=== PATIENT | male | born 1965 | race African-American/Black ===

== ENCOUNTER 2024-01-06 13:34 | Emergency (ER) | payer OTHER ==
[2024-01-06] MEDS ORDERED: Nitroglycerin 2% Ointment 1 INCH/1 GM Packet ONE (13:57)
[2024-01-06 14:24] LABS: #Eosinphils 0.2 10x3/uL (0.0-0.5); #Monocytes 0.5 10x3/uL (0.0-1.1); #Neutrophils 2.8 10x3/uL (1.5-8.4); %Basophils 0.4 % (0.0-2.0); %Eosinophils 3.3 % (0.0-6.0); %Lymphocytes 21.2 % (18.0-47.0); %Monocytes 11.4 % (0.0-10.0); %Neutrophils 63.3 % (40.0-75.0); Hematocrit 34.7 % (38.8-50.0); Hemoglobin 10.4 g/dL (13.5-17.5); Mean Corpuscular Hemoglobin 23.5 pg (27.0-33.0); Mean Corpuscular Volume 78.3 fl (81.2-95.1); Mean Platelet Volume 10.6 fl (7.4-10.4); Platelet Count 235 10x3/uL (150-450); RBC Distribution Width 16.9 % (11.5-14.5); Red Blood Cell (RBC) Count 4.43 10x6/uL (4.32-5.72); White Blood Cell (WBC) Count 4.5 10x3/uL (3.5-10.5)
[2024-01-06] MEDS ORDERED: Ketorolac Tromethamine 30 MG (1 mL) VIAL ONE (14:44)
[2024-01-06 14:54] LABS: Troponin I Less than 0.010 ng/mL (< 0.028)
[2024-01-06 15:00] LABS: ALT (SGPT) 24 U/L (8-55); AST (SGOT) 19 U/L (5-34); Albumin 4.2 g/dL (3.5-5.0); Alkaline Phosphatase 88 U/L (40-110); Anion Gap 16 mmol/L (10-20); BUN (Urea Nitrogen) 24 mg/dL (8.4-25.7); Bilirubin, Total 0.6 mg/dL (0.2-1.2); Calc. Creatinine Clearance 0 mL/min (70-130); Calcium 8.7 mg/dL (7.8-10.44); Carbon Dioxide 24 mmol/L (22-29); Chloride 105 mmol/L (98-107); Estimated GFR 44; Globulin 3.1 g/dL (2.4-3.5); Glucose 205 mg/dL (70-105); Lipase 70 U/L (8-78); Potassium 5.3 mmol/L (3.5-5.1); Protein, Total 7.3 g/dL (6.0-8.3); Sodium 140 mmol/L (136-145)
[2024-01-06 15:56] LABS: Troponin I Less than 0.010 ng/mL (< 0.028)
[2024-01-06] MEDS ORDERED: HYDROcodone/Acetaminophen 5/325 mg Tablet ONE (16:22)
== END 2024-01-06 18:38 ==
LOC: CSHERS 13:34
DX: R07.2 Precordial pain (principal); I10 Essential (primary) hypertension; E11.9 Type 2 diabetes mellitus without complications
CPT/HCPCS: 36415; 71045; 80053; 83690; 84484; 85025; 93005; 96374; J1885

== ENCOUNTER 2024-07-10 12:14 | Inpatient (IN) | payer OTHER ==
[~2024-07-10 12:14] MED LIST: Iopamidol 370 76% 100 ML VIAL ONE
[2024-07-10 13:12] LABS: #Basophils 0.03 10x3/uL (0.0-0.2); #Eosinphils 0.22 10x3/uL (0.0-0.5); #Monocytes 0.54 10x3/uL (0.0-1.1); #Neutrophils 4.28 10x3/uL (1.5-8.4); %Basophils 0.5 % (0.0-2.0); %Eosinophils 3.5 % (0.0-6.0); %Lymphocytes 19.1 % (18.0-47.0); %Monocytes 8.6 % (0.0-10.0); Hematocrit 45.9 % (38.8-50.0); Hemoglobin 14.9 g/dL (13.5-17.5); Mean Corpuscular HGB CONC 32.5 g/dL (32.0-36.0); Mean Corpuscular Hemoglobin 27.2 pg (27.0-33.0); Mean Corpuscular Volume 83.9 fL (81.2-95.1); Mean Platelet Volume 9.7 fL (7.4-10.4); Platelet Count 241 10x3/uL (150-450); RBC Distribution Width 14.1 % (11.5-14.5); Red Blood Cell (RBC) Count 5.47 10x6/uL (4.32-5.72); White Blood Cell (WBC) Count 6.3 10x3/uL (3.5-10.5)
[2024-07-10 13:27] LABS: PTT 25.2 sec (22.0-33.0); Prothrombin Time 11.2 sec (9.5-12.1)
[2024-07-10 13:32] LABS: ALT (SGPT) 63 U/L (8-55); AST (SGOT) 33 U/L (5-34); Albumin 4.7 g/dL (3.5-5.0); Alkaline Phosphatase 135 U/L (40-110); Anion Gap 14 mmol/L (10-20); BUN (Urea Nitrogen) 19 mg/dL (8.4-25.7); Bilirubin, Total 0.8 mg/dL (0.2-1.2); Calc. Creatinine Clearance 0 mL/min (70-130); Calcium 10.1 mg/dL (7.8-10.44); Carbon Dioxide 27 mmol/L (22-29); Chloride 98 mmol/L (98-107); Estimated GFR 61; Globulin 3.9 g/dL (2.4-3.5); Glucose 162 mg/dL (70-105); Lipase 42 U/L (8-78); Magnesium 1.5 mg/dL (1.6-2.6); Potassium 4.3 mmol/L (3.5-5.1); Protein, Total 8.6 g/dL (6.0-8.3); Sodium 135 mmol/L (136-145)
[2024-07-10 13:35] LABS: Troponin I 0.083 ng/mL (< 0.028)
[2024-07-10] MEDS ORDERED: Magnesium 2 GM/50 ML BAG (IN WATER) ONE (13:42)
[2024-07-10 17:19] LABS: Troponin I 0.055 ng/mL (< 0.028)
[2024-07-10] MEDS ORDERED: Acetaminophen 325 MG TAB PO PRN (19:17)
[2024-07-10] MEDS ORDERED: Ondansetron PF 4 MG/2 ML Vial IVP PRN (19:17)
[2024-07-10] MEDS ORDERED: Ondansetron ODT 4 MG TAB PO PRN (19:17)
[2024-07-10] MEDS ORDERED: Acetaminophen 650 MG Suppository PR PRN (19:17)
[2024-07-10] MEDS ORDERED: Morphine 4 MG/ML VIAL SLOW IVP PRN (19:30)
[2024-07-10 20:15] LABS: Troponin I 0.053 ng/mL (< 0.028)
[2024-07-10] MEDS ORDERED: Heparin 5,000 UNITS/ML VIAL SC SCH (21:00)
[2024-07-10 22:19] VITALS: BMI 23.1
[2024-07-10] MEDS: Famotidine 20 MG TAB PO SCH (22:56)
[2024-07-10] MEDS: Carvedilol 6.25 MG TAB PO SCH (22:57)
[2024-07-10] MEDS: Morphine 2 MG/ML VIAL SLOW IVP PRN (23:28)
[2024-07-10 23:48] LABS: Troponin I 0.048 ng/mL (< 0.028)
[2024-07-11 05:10] LABS: #Basophils 0.01 10x3/uL (0.0-0.2); #Eosinphils 0.22 10x3/uL (0.0-0.5); #Monocytes 0.44 10x3/uL (0.0-1.1); %Basophils 0.3 % (0.0-2.0); %Eosinophils 5.7 % (0.0-6.0); %Lymphocytes 32.8 % (18.0-47.0); %Monocytes 11.5 % (0.0-10.0); %Neutrophils 49.4 % (40.0-75.0); Hematocrit 43.2 % (38.8-50.0); Mean Corpuscular HGB CONC 32.4 g/dL (32.0-36.0); Mean Corpuscular Hemoglobin 27.3 pg (27.0-33.0); Mean Corpuscular Volume 84.2 fL (81.2-95.1); Mean Platelet Volume 9.4 fL (7.4-10.4); Platelet Count 210 10x3/uL (150-450); RBC Distribution Width 14.4 % (11.5-14.5); Red Blood Cell (RBC) Count 5.13 10x6/uL (4.32-5.72); White Blood Cell (WBC) Count 3.8 10x3/uL (3.5-10.5)
[2024-07-11 05:25] LABS: Anion Gap 13 mmol/L (10-20); BUN (Urea Nitrogen) 24 mg/dL (8.4-25.7); Calc. Creatinine Clearance 48 mL/min (70-130); Calcium 9.4 mg/dL (7.8-10.44); Carbon Dioxide 26 mmol/L (22-29); Cardiac Risk 4.6 (Less than 4.5); Chloride 100 mmol/L (98-107); Cholesterol 137 mg/dl (< 200 Desired); Estimated GFR 56; Glucose 312 mg/dL (70-105); HDL Cholesterol 30 mg/dL (>60 Neg Risk); LDL Cholesterol, Calculated 67 mg/dL; Magnesium 1.8 mg/dL (1.6-2.6); Phosphorus 2.3 mg/dL (2.3-4.7); Potassium 4.4 mmol/L (3.5-5.1); Sodium 135 mmol/L (136-145); Triglycerides 198 mg/dL (Less than 150)
[2024-07-11] MEDS ORDERED: Glucagon 1 MG/ML KIT IM PRN (08:55)
[2024-07-11] MEDS ORDERED: Dextrose 50% Abboject 50 ML SYRINGE SLOW IVP PRN (08:55)
[2024-07-11] MEDS ORDERED: Dextrose 5% in Water 1,000 ML IV PRN (08:55)
[2024-07-11] MEDS: Rivaroxaban 10 MG TAB PO SCH ×2 (09:00→16:58)
[2024-07-11] MEDS: Aspirin Chewable 81 MG TAB PO SCH (09:39)
[2024-07-11] MEDS: Atorvastatin Calcium 40 MG TAB PO SCH (09:39)
[2024-07-11] MEDS: Carvedilol 6.25 MG TAB PO SCH (09:40)
[2024-07-11] MEDS: Pantoprazole DR 40 MG TAB PO SCH (09:40)
[2024-07-11] MEDS: Isosorbide Mononitrate 60 MG ER.TAB PO SCH (09:40)
[2024-07-11] MEDS: Insulin Lispro 100 UNIT/ML 10 ML VIAL SC PRN (11:39)
[2024-07-11 15:38] VITALS: TEMP 97.4
[2024-07-11 16:32] LABS: Hemoglobin A1c 8.7 % (4.0-6.0)
[2024-07-11 23:06] VITALS: BP 119/82
[2024-07-12] MEDS ORDERED: Isosorbide Mononitrate 60 MG ER.TAB PO SCH (09:00)
== END 2024-07-12 00:30 | DRG 282 ==
LOC: CSHERS 12:14 → EEVIPCON 12:14 → CSHERHOLD 16:30 → CSHTELE 22:04
PROVIDERS: ADMIT Family Medicine; ATTEND Internal Medicine
DX: I21.4 Non-ST elevation (NSTEMI) myocardial infarction (principal); I25.10 Atherosclerotic heart disease of native coronary artery without angina pectoris; K21.9 Gastro-esophageal reflux disease without esophagitis; K46.9 Unspecified abdominal hernia without obstruction or gangrene; E11.22 Type 2 diabetes mellitus with diabetic chronic kidney disease; N18.30 Chronic kidney disease, stage 3 unspecified; I12.9 Hypertensive chronic kidney disease with stage 1 through stage 4 chronic kidney disease, or unspecified chronic kidney disease; E78.5 Hyperlipidemia, unspecified; E83.42 Hypomagnesemia; M19.90 Unspecified osteoarthritis, unspecified site; Z95.1 Presence of aortocoronary bypass graft; Z91.010 Allergy to peanuts; Z88.8 Allergy status to other drugs, medicaments and biological substances; Z79.82 Long term (current) use of aspirin; Z79.899 Other long term (current) drug therapy; Z79.4 Long term (current) use of insulin; Z98.890 Other specified postprocedural states
CPT/HCPCS: 36415; 36416; 71045; 71275; 74174; 80048; 80053; 80061; 83036; 83690; 83735; 83880; 84100; 84443; 84484; 85025; 85610; 85730; 93005; 93010; 93306; 94760; 96374; J2272; J3475; Q9967

== ENCOUNTER 2024-08-16 23:17 | Emergency (ER) | payer OTHER ==
[2024-08-17 00:12] LABS: #Basophils 0.03 10x3/uL (0.0-0.2); #Eosinphils 0.27 10x3/uL (0.0-0.5); #Neutrophils 3.85 10x3/uL (1.5-8.4); %Basophils 0.5 % (0.0-2.0); %Eosinophils 4.8 % (0.0-6.0); %Lymphocytes 19.4 % (18.0-47.0); %Monocytes 7.1 % (0.0-10.0); %Neutrophils 67.8 % (40.0-75.0); Hematocrit 44.1 % (38.8-50.0); Hemoglobin 14.4 g/dL (13.5-17.5); Mean Corpuscular HGB CONC 32.7 g/dL (32.0-36.0); Mean Corpuscular Hemoglobin 28.2 pg (27.0-33.0); Mean Corpuscular Volume 86.3 fL (81.2-95.1); Mean Platelet Volume 9.6 fL (7.4-10.4); Platelet Count 210 10x3/uL (150-450); Red Blood Cell (RBC) Count 5.11 10x6/uL (4.32-5.72); White Blood Cell (WBC) Count 5.7 10x3/uL (3.5-10.5)
[2024-08-17 00:24] LABS: ALT (SGPT) 37 U/L (8-55); AST (SGOT) 22 U/L (5-34); Albumin 4.1 g/dL (3.5-5.0); Alkaline Phosphatase 124 U/L (40-110); Anion Gap 17 mmol/L (10-20); BUN (Urea Nitrogen) 28 mg/dL (8.4-25.7); Bilirubin, Total 0.5 mg/dL (0.2-1.2); Calc. Creatinine Clearance 0 mL/min (70-130); Calcium 9.4 mg/dL (7.8-10.44); Carbon Dioxide 25 mmol/L (22-29); Chloride 99 mmol/L (98-107); Estimated GFR 49; Globulin 3.4 g/dL (2.4-3.5); Glucose 251 mg/dL (70-105); Potassium 4.1 mmol/L (3.5-5.1); Protein, Total 7.5 g/dL (6.0-8.3); Sodium 137 mmol/L (136-145)
[2024-08-17 00:27] LABS: Troponin I Less than 0.010 ng/mL (< 0.028)
[2024-08-17] MEDS ORDERED: Ketorolac Tromethamine 30 MG (1 mL) VIAL ONE (00:48)
[2024-08-17 02:45] LABS: Troponin I Less than 0.010 ng/mL (< 0.028)
== END 2024-08-17 04:06 ==
LOC: EEVIPCON 23:17 → CSHERS 23:17
DX: R07.9 Chest pain, unspecified (principal); R41.3 Other amnesia; I12.9 Hypertensive chronic kidney disease with stage 1 through stage 4 chronic kidney disease, or unspecified chronic kidney disease; N18.9 Chronic kidney disease, unspecified; E11.22 Type 2 diabetes mellitus with diabetic chronic kidney disease; E78.5 Hyperlipidemia, unspecified; K21.9 Gastro-esophageal reflux disease without esophagitis; Z55.6 Problems related to health literacy; Z79.84 Long term (current) use of oral hypoglycemic drugs; Z79.82 Long term (current) use of aspirin; Z79.4 Long term (current) use of insulin; Z79.899 Other long term (current) drug therapy
CPT/HCPCS: 36415; 70450; 71045; 80053; 83880; 84484; 85025; 85379; 93005; 94760; 96374; J1885

== ENCOUNTER 2024-10-31 15:11 | Emergency (ER) | payer OTHER ==
[2024-10-31 16:30] LABS: #Basophils 0.02 10x3/uL (0.0-0.2); #Eosinophils 0.08 10x3/uL (0.0-0.5); #Monocytes 0.51 10x3/uL (0.0-1.1); #Neutrophils 5.54 10x3/uL (1.5-8.4); %Basophils 0.3 % (0.0-2.0); %Eosinophils 1.1 % (0.0-6.0); %Lymphocytes 15.6 % (18.0-47.0); %Neutrophils 75.7 % (40.0-75.0); Hematocrit 45.6 % (38.8-50.0); Hemoglobin 15.2 g/dL (13.5-17.5); Mean Corpuscular HGB CONC 33.3 g/dL (32.0-36.0); Mean Corpuscular Hemoglobin 28.3 pg (27.0-33.0); Mean Corpuscular Volume 84.8 fL (81.2-95.1); Mean Platelet Volume 9.6 fL (7.4-10.4); Platelet Count 235 10x3/uL (150-450); RBC Distribution Width 12.4 % (11.5-14.5); Red Blood Cell (RBC) Count 5.38 10x6/uL (4.32-5.72); White Blood Cell (WBC) Count 7.3 10x3/uL (3.5-10.5)
[2024-10-31 16:40] LABS: ALT (SGPT) 38 U/L (8-55); AST (SGOT) 22 U/L (5-34); Albumin 4.2 g/dL (3.5-5.0); Alkaline Phosphatase 106 U/L (40-110); Anion Gap 15 mmol/L (10-20); BUN (Urea Nitrogen) 30 mg/dL (8.4-25.7); Bilirubin, Total 0.5 mg/dL (0.2-1.2); Calc. Creatinine Clearance 0 mL/min (70-130); Calcium 10.3 mg/dL (7.8-10.44); Carbon Dioxide 29 mmol/L (22-29); Chloride 98 mmol/L (98-107); Estimated GFR 50; Globulin 3.8 g/dL (2.4-3.5); Glucose 154 mg/dL (70-105); Lipase 55 U/L (8-78); Potassium 5.2 mmol/L (3.5-5.1); Sodium 137 mmol/L (136-145)
[2024-10-31 16:47] LABS: Troponin I Less than 0.010 ng/mL (< 0.028)
[2024-10-31] MEDS ORDERED: Ketorolac Tromethamine 30 MG (1 mL) VIAL ONE (18:15)
[2024-10-31 18:45] LABS: Troponin I Less than 0.010 ng/mL (< 0.028)
[2024-10-31] MEDS ORDERED: Morphine 4 MG/ML VIAL ONE (19:55)
== END 2024-10-31 21:30 ==
LOC: CSHERS 15:11 → EEVIPCON 15:11 → CSHERS 21:30
DX: R07.9 Chest pain, unspecified (principal); I12.9 Hypertensive chronic kidney disease with stage 1 through stage 4 chronic kidney disease, or unspecified chronic kidney disease; E11.22 Type 2 diabetes mellitus with diabetic chronic kidney disease; N18.9 Chronic kidney disease, unspecified
CPT/HCPCS: 36415; 71045; 80053; 83690; 83880; 84484; 85025; 93005; 96361; 96374; 96375; J1885; J2272

== ENCOUNTER 2024-11-01 04:30 | Emergency (ER) | payer OTHER ==
[2024-11-01 05:40] LABS: Troponin I Less than 0.010 ng/mL (< 0.028)
[2024-11-01] MEDS ORDERED: Metoprolol Tartrate 50 MG TAB ONE ×2 (05:51→08:41)
== END 2024-11-01 11:00 | disposition home or self-care (01) ==
LOC: EEVIPCON 04:30 → CSHERS 04:30
DX: R07.9 Chest pain, unspecified (principal); I25.2 Old myocardial infarction; I25.10 Atherosclerotic heart disease of native coronary artery without angina pectoris; K21.9 Gastro-esophageal reflux disease without esophagitis; I12.9 Hypertensive chronic kidney disease with stage 1 through stage 4 chronic kidney disease, or unspecified chronic kidney disease; E11.22 Type 2 diabetes mellitus with diabetic chronic kidney disease; N18.9 Chronic kidney disease, unspecified; Z79.82 Long term (current) use of aspirin; Z79.4 Long term (current) use of insulin; Z79.899 Other long term (current) drug therapy
CPT/HCPCS: 36415; 84484; 93005; 99285